=== PATIENT | male | born 1930 | race Caucasian/White ===

== ENCOUNTER 2018-07-18 16:12 | Inpatient (IN) ==
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
[2018-07-18] MEDS ORDERED: Morphine Inj 4 MG/ML Vial IV.PUSH ONE (16:34)
[2018-07-18] MEDS ORDERED: Sod Chloride 0.9% Inj 1,000 ML IV.SIG ONE (16:34)
[2018-07-18 16:35] LABS: Baso # (Auto) 0.1 th/mm3 (0.0-0.2); Baso % (Auto) 0.6 % (0.0-2.0); Eos # (Auto) 0.5 th/mm3 (0.0-0.4); Eos % (Auto) 5.4 % (0.0-4.0); Hematocrit 42.2 % (39.0-51.0); Hemoglobin 14.3 gm/dL (13.0-17.0); Lymph # (Auto) 2.2 th/mm3 (1.0-4.8); Lymph % (Auto) 24.1 % (9.0-44.0); Mean Corpuscular HGB Conc 33.9 % (32.0-36.0); Mean Corpuscular Hemoglobin 30.5 pg (27.0-34.0); Mean Platelet Volume 9.2 fL (7.0-11.0); Mono # (Auto) 0.8 th/mm3 (0.0-0.9); Mono % (Auto) 8.2 % (0.0-8.0); Neut # (Auto) 5.8 th/mm3 (1.8-7.7); Neut % (Auto) 61.7 % (16.0-70.0); Platelet Count 196 th/mm3 (150-450); Red Blood Count 4.69 mil/mm3 (4.50-5.90); Red Cell Distribution Width 13.7 % (11.6-17.2); White Blood Count 9.3 th/mm3 (4.0-11.0)
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
[2018-07-18 16:44] LABS: Prothrombin Time 10.5 sec (9.8-11.6)
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
[2018-07-18 16:59] LABS: Anion Gap 7 meq/L (5-15); Blood Urea Nitrogen 16 mg/dL (7-18); Calcium 8.1 mg/dL (8.5-10.1); Carbon Dioxide 32.6 meq/L (21.0-32.0); Chloride 100 meq/L (98-107); Glomerular Filtration Rate 60 mL/min (>89); Glucose,Random 118 mg/dL (74-106); Potassium 3.1 meq/L (3.5-5.1); Sodium 140 meq/L (136-145)
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
[2018-07-18 20:45] LABS: Bilirubin,Urine Negative (Negative); Clarity,Urine Clear (Clear); Color,Urine Yellow (Yellw/Straw); Glucose,Urine (UA) Negative (Negative); Leukocyte Esterase,Urine Negative (Negative); Nitrite,Urine Negative (Negative); Specific Gravity,Urine 1.017 (1.002-1.035); Squamous Epithelial Cell,Urine <1 /hpf (0-5)
[2018-07-18 20:51] LABS: Amphetamine Screen,Urine Neg (Neg); Barbiturate Screen,Urine Neg (Neg); Cannabinoid Screen,Urine Neg (Neg); Cocaine Screen,Urine Neg (Neg)
[2018-07-18 21:00] LABS: Opiate Screen,Urine Neg (Neg)
[2018-07-18] MEDS ORDERED: Morphine Sulfate Inj 2 MG/ML Vial IV.PUSH PRN (23:46)
[2018-07-18] MEDS ORDERED: Acetaminophen 325 MG Tablet PO PRN (23:46)
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
[2018-07-19] MEDS ORDERED: Chlorhexidine Gluconate 2% 1 Pack (2 Cloths) TOPICAL PRN (04:00)
[2018-07-19] MEDS ORDERED: Chlorhexidine Gluconate 2% 1 Pack (2 Cloths) TOPICAL SCH (04:00)
[2018-07-19] MEDS ORDERED: Sodium Chloride 0.9% 2 ML Flush PRN IV.FLUSH (06:02)
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
[2018-07-19 08:25] VITALS: RESP 18; TEMP 97.7
[2018-07-19] MEDS ORDERED: Sodium Chloride 0.9% 2 ML Flush BID IV.FLUSH SCH (09:00)
[2018-07-19] MEDS ORDERED: Senna/Docusate Sodium 8.6/50 MG Tablet PO SCH (09:00)
[2018-07-19 12:07] VITALS: BP 133/80; PULSE 83; O2SAT 95
--- NOTE | 2018-07-19 13:50 | XR ---
EXAM DATE: 07/19/2018 12:00 AM EDT AGE/SEX: 88 years / Male INDICATIONS: Evaluate for fracture. CLINICAL DATA: This is the patient's initial encounter. Patient reports that signs and symptoms have been present for 1 day and indicates a pain score of 7/10. MEDICAL/SURGICAL HISTORY: None. None. COMPARISON: No prior exams available for comparison. FINDINGS: Flexion and extension views of the spine were performed. Advanced multilevel degenerative changes. Mi nimal anterolisthesis C3 on 4 and not significant change with flexion or extension. No compression fr acture. The prevertebral soft tissues are normal in thickness. CONCLUSION: 1. Minimal anterolisthesis C3 on 4. 2. Advanced multilevel degenerative changes. Electronically signed by: Eric Avila MD 07/19/2018 1:49 PM EDT
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
== END 2018-07-19 17:39 | disposition home or self-care (01) ==
LOC: NEPE 16:12 → NEDA 16:12 → EDBD 18:11 → NEPGCP 07-19 00:55
PROVIDERS: ADMIT Surgery; ATTEND Surgery